=== PATIENT | male | born 1965 | race Caucasian/White ===

== ENCOUNTER 2023-09-24 19:42 | Emergency (ER) | payer MEDICAID ==
[~2023-09-24] VITALS: Ht 172.7 cm; Wt 34.1 kg
[2023-09-24 20:18] VITALS: BP 113/72; PULSE 62; RESP 18; TEMP 98.5
[2023-09-24] MEDS: LORazepam 2 MG/ML VIAL IVP ONE (21:55)
[2023-09-24] MEDS: LevETIRAcetam 1,000 MG in DEXTROSE 5%-WATER 100 ML IV ONE (22:00)
[2023-09-24] MEDS ORDERED: LEVE500T8 PO (22:00)
== END 2023-09-24 22:30 | disposition left against medical advice (07) ==
LOC: EMS 19:42
DX: G40.909 Epilepsy, unspecified, not intractable, without status epilepticus (principal); F17.210 Nicotine dependence, cigarettes, uncomplicated; Z88.0 Allergy status to penicillin
CPT/HCPCS: 99284; 96365; J0712; J7060

== ENCOUNTER 2023-09-24 23:55 | Emergency (ER) | payer MEDICAID ==
[~2023-09-24 23:55] MED LIST: LEVE500T8 PO
== END 2023-09-25 00:10 | disposition left against medical advice (07) ==
LOC: EMS 23:56
DX: Z53.21 Procedure and treatment not carried out due to patient leaving prior to being seen by health care provider (principal)

== ENCOUNTER 2023-11-01 19:47 | Emergency (ER) | payer MEDICAID ==
[~2023-11-01] VITALS: Ht 172.7 cm; Wt 75.0 kg
[2023-11-01 19:51] VITALS: BP 110/60; PULSE 88; RESP 16; TEMP 98.2
[2023-11-01] MEDS ORDERED: LEVE1000 PO (20:26)
== END 2023-11-01 21:36 | disposition home or self-care (01) ==
LOC: EMS 19:48
DX: G40.909 Epilepsy, unspecified, not intractable, without status epilepticus (principal); F17.210 Nicotine dependence, cigarettes, uncomplicated
CPT/HCPCS: 99281; Z7502